=== PATIENT | male | born 1965 | race Caucasian/White ===

== ENCOUNTER 2018-01-06 19:00 | Inpatient (IN) | payer OTHER ==
[~2018-01-06] VITALS: Ht 180.3 cm; Wt 112.0 kg
[2018-01-06 20:26] LABS: Hemoglobin 10.1 g/dL (13.5-17.5); Red Cell Distribution Width 15.7 % (11.8-14.3)
[2018-01-06 20:28] LABS: Hematocrit 27.9 % (41.0-53.0); Mean Corpuscular Hemoglobin 29.6 pg (28.0-32.0); Mean Corpuscular Hgb Conc. 36.2 g/dL (32.0-36.0); Mean Corpuscular Volume 81.9 fL (80.0-100.0); Red Blood Cells 3.41 10^6/uL (4.5-5.90)
[2018-01-06 20:40] LABS: INR 1.13 (0.9-1.15); Partial Thromboplastin Time 24.9 sec (23.78-33.04)
[2018-01-06 20:51] LABS: Alanine Aminotransferase 30 U/L (16-61); Albumin 4.2 g/dL (3.4-5.0); Alkaline Phosphatase 47 U/L (45-117); Anion Gap 8 (5-15); Aspartate Aminotransferase 35 U/L (15-37); Bilirubin, Total 0.5 mg/dL (0.2-1.0); Blood Urea Nitrogen 23 mg/dL (7-18); Calcium 8.8 mg/dL (8.5-10.1); Carbon Dioxide 24 mmol/L (21-32); Chloride 104 mmol/L (98-107); GFR African American 85 mL/min; GFR Non-African American 70 mL/min; Glucose 101 mg/dL (74-106); Magnesium 2.5 mg/dL (1.6-2.6); Potassium 4.4 mmol/L (3.5-5.1); Sodium 136 mmol/L (136-145); Total Protein 8.1 g/dL (6.4-8.2)
[2018-01-06 21:11] LABS: White Blood Cell 0.9 10^3/uL (4.4-10.8)
[2018-01-06 21:12] LABS: Band Neutrophils % (manual) 0; Basophils % (manual) 0 (0.0-2.0); Blast Cells 0; Eosinophils % (manual) 0 (0-7); Lymphocytes % (manual) 50 (10.0-50.0); Metamyelocytes % 0; Monocytes % (manual) 8 (0-12); Myelocytes % 0; Platelet Count (auto) 13 10^3/uL (140-450); Promyelocytes % 0; Reactive Lymphocytes 0
[2018-01-06] MEDS ORDERED: fentaNYL CITRATE 100 MCG/2 ML VL IV ONE (21:15)
[2018-01-06] MEDS ORDERED: LABETALOL HCL 5 MG/ML ML 20ML VIAL IV ONE (22:00)
[2018-01-07] VITALS (11 sets, daily range): BP systolic 121–140; BP diastolic 63–78
[2018-01-07] MEDS ORDERED: cloNIDine HCL 0.1 MG TAB PO PRN (04:30)
[2018-01-07] MEDS ORDERED: ACETAMINOPHEN 500 MG TAB PO PRN (04:30)
[2018-01-07] MEDS ORDERED: ONDANSETRON HCL 4 MG/2 ML VIAL IV PRN (04:30)
[2018-01-07] MEDS ORDERED: TEMAZEPAM 15 MG CAP PO PRN (04:30)
[2018-01-07] MEDS: methylPREDNISolone SOD SUCC 125 MG/2 ML VL IV SCH ×3 (08:56→23:30)
[2018-01-07] MEDS ORDERED: IOHEXOL 300 MG/ML 100ML BOTTLE IJ ONE (09:06)
[2018-01-07] MEDS ORDERED: GASTROGRAFIN 30 ML SOL ONE (09:12)
[2018-01-07] MEDS ORDERED: PANTOPRAZOLE 40 MG TAB PO SCH (10:00)
[2018-01-07 13:15] LABS: Hepatitis B Surface Antibody Negative
[2018-01-07 13:32] LABS: Hepatitis B Surface Antigen Negative (Negative)
[2018-01-07 14:04] LABS: Hepatitis C Antibody Positive (Negative)
[2018-01-07] MEDS: FAMOTIDINE 20 MG TAB PO SCH (23:28)
[2018-01-08 05:27] VITALS: BP 111/58
[2018-01-08 06:29] LABS: Basophils # (auto) 0 uL; Eosinophils # (auto) 0 uL; Hematocrit 26.4 % (41.0-53.0); Mean Corpuscular Hgb Conc. 36.6 g/dL (32.0-36.0); Monocytes # (auto) 0.2 uL; Neutrophils # (auto) 0.6 uL
[2018-01-08 06:34] LABS: Basophils % (auto) 4.6 % (0.0-2.0); Hemoglobin 9.6 g/dL (13.5-17.5); Lymphocytes # (auto) 0.2 uL; Lymphocytes % (auto) 19.9 % (10.0-50.0); Mean Corpuscular Hemoglobin 29.8 pg (28.0-32.0); Mean Corpuscular Volume 81.5 fL (80.0-100.0); Monocytes % (auto) 15.5 % (0.0-12.0); Red Blood Cells 3.23 10^6/uL (4.5-5.90); Red Cell Distribution Width 15.2 % (11.8-14.3)
[2018-01-08 06:40] LABS: Nucleated Red Blood Cells % 3.1 %
[2018-01-08] MEDS: methylPREDNISolone SOD SUCC 125 MG/2 ML VL IV SCH ×3 (06:42→18:15)
[2018-01-08 06:44] LABS: % Iron Saturation 69.6 % (20-55)
[2018-01-08 06:46] LABS: Platelet Count (auto) 15 10^3/uL (140-450)
[2018-01-08 06:55] LABS: BUN/Creatinine Ratio 24.3; Calcium 8.7 mg/dL (8.5-10.1); Magnesium 2.7 mg/dL (1.6-2.6); Potassium 4.1 mmol/L (3.5-5.1)
[2018-01-08 08:00] VITALS: BP 131/71
[2018-01-08 08:09] LABS: Folate (Folic Acid) 10.51 ng/mL (5.38-24)
[2018-01-08 09:00] VITALS: BP 131/71
[2018-01-08] MEDS: LORazepam 0.5 MG TAB PO PRN (10:07)
[2018-01-08] MEDS: FAMOTIDINE 20 MG TAB PO SCH ×2 (10:07→21:56)
[2018-01-08] MEDS ORDERED: DEXTROSE (50%) 50ML SYRG IV PRN (10:15)
[2018-01-08] MEDS: ACCU-CHEK COMFORT CURVE STRIP VI SCH ×3 (11:30→21:59)
[2018-01-08] MEDS: InsuLIN REG 1unit/0.01ml Soln (100units/ml) SC SCH ×3 (11:30→22:06)
[2018-01-08] MEDS: IV IMMUNE GLOBULIN(IVIG) 10% 20G/200ML IV SCH (12:00)
[2018-01-08 13:00] VITALS: BP 122/71
[2018-01-08 17:00] VITALS: BP 123/76
[2018-01-08 21:21] VITALS: BP 135/80
[2018-01-08] MEDS ORDERED: FAM20T PO (23:27)
[2018-01-09] VITALS (11 sets, daily range): BP systolic 115–168; BP diastolic 59–80
[2018-01-09] MEDS: methylPREDNISolone SOD SUCC 125 MG/2 ML VL IV SCH ×5 (00:16→23:17)
[2018-01-09 05:53] LABS: Hemoglobin 9.1 g/dL (13.5-17.5); White Blood Cell 2.1 10^3/uL (4.4-10.8)
[2018-01-09 05:55] LABS: Hematocrit 24.9 % (41.0-53.0); Mean Corpuscular Hemoglobin 30.2 pg (28.0-32.0); Mean Corpuscular Hgb Conc. 36.4 g/dL (32.0-36.0); Mean Corpuscular Volume 82.9 fL (80.0-100.0); Red Cell Distribution Width 15.8 % (11.8-14.3)
[2018-01-09 06:05] LABS: Platelet Count (auto) 11 10^3/uL (140-450)
[2018-01-09 06:06] LABS: Band Neutrophils % (manual) 0; Basophils % (manual) 0 (0.0-2.0); Blast Cells 0; Eosinophils % (manual) 0 (0-7); Metamyelocytes % 0; Myelocytes % 0; Promyelocytes % 0; Reactive Lymphocytes 0
[2018-01-09] MEDS: InsuLIN REG 1unit/0.01ml Soln (100units/ml) SC SCH ×4 (06:35→22:00)
[2018-01-09] MEDS: ACCU-CHEK COMFORT CURVE STRIP VI SCH ×4 (06:35→22:00)
[2018-01-09 07:24] LABS: Urine Bacteria NONE SEEN /hpf (None Seen); Urine Blood 2+ /uL (Negative); Urine Specific Gravity 1.018 (1.001-1.035); Urine WBC 1 /hpf (0 - 3)
[2018-01-09 08:06] LABS: Immunoglobulin G, Serum 922 mg/dL (700-1600)
[2018-01-09] MEDS ORDERED: LIDOCAINE 2% (LOCAL ANESTH.) PF 5ml SDV ONE ×2 (08:13→08:15)
[2018-01-09 08:31] LABS: Lymphocytes % (manual) 37 (10.0-50.0); Monocytes % (manual) 32 (0-12)
[2018-01-09] MEDS: FAMOTIDINE 20 MG TAB PO SCH ×2 (10:00→22:28)
[2018-01-09] MEDS: IV IMMUNE GLOBULIN(IVIG) 10% 20G/200ML IV SCH (11:52)
[2018-01-09] MEDS ORDERED: FUROSEMIDE 20 MG/2 ML VIAL IV ONE (14:30)
[2018-01-09] MEDS ORDERED: ALBUTEROL SULF 2.5 MG/0.5ML(0.5%) NEB SOLN NEB PRN (18:15)
[2018-01-09] MEDS: ALBUTEROL SULF 2.5 MG/0.5ML(0.5%) NEB SOLN NEB SCH (18:34)
[2018-01-09] MEDS ORDERED: ACYCLOVIR 5MG/KG Q8HR PER RX 0 ML IV SCH (18:45)
[2018-01-09] MEDS ORDERED: VANCOMYCIN PER PHARMACY 0 MG IV SCH (18:45)
[2018-01-09] MEDS ORDERED: VANCOMYCIN 1GM/250ML 250 ML IV ONE (18:45)
[2018-01-09] MEDS ORDERED: PIPERACILLIN-TAZOB 3.375GM 100 ML IV ONE (18:45)
[2018-01-09] MEDS ORDERED: BACTRIM 5MG/KG Q8HR PER RX 0 ML IV SCH (18:45)
[2018-01-09] MEDS ORDERED: ACETAMINOPHEN 325 MG TAB PO ONE (19:00)
[2018-01-09] MEDS ORDERED: diphenhdrAMINE HCL 50 MG/1 ML VL IV ONE (19:00)
[2018-01-09 19:40] LABS: Albumin 3.4 g/dL (3.4-5.0); BUN/Creatinine Ratio 25.4; Bilirubin, Total 0.4 mg/dL (0.2-1.0); Calcium 8.1 mg/dL (8.5-10.1); Total Protein 9.2 g/dL (6.4-8.2)
[2018-01-09] MEDS: FUROSEMIDE 40 MG/4 ML VIAL IV SCH (20:20)
[2018-01-09] MEDS: POTASSIUM CHL 20 Meq TABLET PO SCH (20:20)
[2018-01-09] MEDS ORDERED: IOHEXOL 350 MG/ML 100ML IJ ONE (21:01)
[2018-01-09] MEDS: FLUCONAZOLE 200MG/100ML 100 ML IV SCH ×2 (21:59→23:15)
[2018-01-10] VITALS (39 sets, daily range): BP systolic 91–147; BP diastolic 41–89
[2018-01-10] MEDS: ACYCLOVIR SOD 50MG/ML 500 MG in D5W 5% 100 ML IV SCH ×3 (00:15→13:00)
[2018-01-10] MEDS: SULFAMETH TRIMETH IV SCH ×3 (00:30→13:27)
[2018-01-10] MEDS: D5W 5% IV SCH ×3 (00:30→13:27)
[2018-01-10] MEDS: PIPERACILLIN-TAZOB 3.375GM 100 ML IV SCH ×4 (01:06→16:57)
[2018-01-10] MEDS: VANCOMYCIN 1GM/250ML 250 ML IV SCH ×3 (03:55→20:18)
[2018-01-10 04:02] LABS: Hemoglobin 7.3 g/dL (13.5-17.5)
[2018-01-10 04:06] LABS: Hematocrit 20.5 % (41.0-53.0); Mean Corpuscular Hemoglobin 29.4 pg (28.0-32.0); Mean Corpuscular Hgb Conc. 35.6 g/dL (32.0-36.0); Mean Corpuscular Volume 82.6 fL (80.0-100.0); Red Blood Cells 2.49 10^6/uL (4.5-5.90); Red Cell Distribution Width 15.5 % (11.8-14.3)
[2018-01-10 04:16] LABS: Platelet Count (auto) 8 10^3/uL (140-450); White Blood Cell 1.3 10^3/uL (4.4-10.8)
[2018-01-10 04:17] LABS: BUN/Creatinine Ratio 26.4; Calcium 7.5 mg/dL (8.5-10.1); Potassium 4.2 mmol/L (3.5-5.1)
[2018-01-10] MEDS: ALBUTEROL SULF 2.5 MG/0.5ML(0.5%) NEB SOLN NEB SCH ×4 (05:59→18:00)
[2018-01-10] MEDS: ACCU-CHEK COMFORT CURVE STRIP VI SCH ×4 (06:30→22:00)
[2018-01-10] MEDS: InsuLIN REG 1unit/0.01ml Soln (100units/ml) SC SCH ×4 (06:30→22:00)
[2018-01-10] MEDS: methylPREDNISolone SOD SUCC 125 MG/2 ML VL IV SCH ×2 (06:30→11:59)
[2018-01-10 06:34] LABS: Basophils % (manual) 0 (0.0-2.0); Blast Cells 0; Eosinophils % (manual) 0 (0-7); Metamyelocytes % 0; Myelocytes % 0; Promyelocytes % 0; Reactive Lymphocytes 0
[2018-01-10 06:52] LABS: Band Neutrophils % (manual) 2; Lymphocytes % (manual) 28 (10.0-50.0)
[2018-01-10 06:55] LABS: Monocytes % (manual) 38 (0-12)
[2018-01-10] MEDS: FLUCONAZOLE 200MG/100ML 100 ML IV SCH ×2 (09:08→10:50)
[2018-01-10] MEDS: FAMOTIDINE 20 MG TAB PO SCH ×2 (09:09→21:12)
[2018-01-10] MEDS: FUROSEMIDE 40 MG/4 ML VIAL IV SCH (09:09)
[2018-01-10] MEDS: POTASSIUM CHL 20 Meq TABLET PO SCH (09:09)
[2018-01-10 09:58] LABS: Hepatitis A Total Antibody Negative
[2018-01-10 11:03] LABS: Hepatitis A Ab IgM Negative
[2018-01-10 12:17] LABS: Hematocrit 21.1 % (41.0-53.0); Hemoglobin 7.4 g/dL (13.5-17.5); Mean Corpuscular Hemoglobin 29.1 pg (28.0-32.0); Mean Corpuscular Hgb Conc. 34.9 g/dL (32.0-36.0); Mean Corpuscular Volume 83.4 fL (80.0-100.0); Platelet Count (auto) 42 10^3/uL (140-450); Red Blood Cells 2.53 10^6/uL (4.5-5.90); Red Cell Distribution Width 15.8 % (11.8-14.3); White Blood Cell 2.2 10^3/uL (4.4-10.8)
[2018-01-10 12:26] LABS: Band Neutrophils % (manual) 0; Basophils % (manual) 0 (0.0-2.0); Blast Cells 0; Eosinophils % (manual) 0 (0-7); Promyelocytes % 0; Reactive Lymphocytes 0
[2018-01-10 13:04] LABS: Lymphocytes % (manual) 25 (10.0-50.0); Metamyelocytes % 1; Monocytes % (manual) 36 (0-12); Myelocytes % 1
[2018-01-10] MEDS: DEXAMETHASONE INJECTION 10 MG in D5W 5% 50 ML IV SCH (21:13)
[2018-01-10] MEDS ORDERED: DEXAMETHASONE SOD PHOS 10MG/1ML VIAL INJ IV SCH (22:00)
[2018-01-11] VITALS (67 sets, daily range): BP systolic 100–153; BP diastolic 41–77
[2018-01-11 03:51] LABS: Hematocrit 18.7 % (41.0-53.0); Mean Corpuscular Hgb Conc. 36.1 g/dL (32.0-36.0); Mean Corpuscular Volume 83.1 fL (80.0-100.0); Red Blood Cells 2.25 10^6/uL (4.5-5.90); Red Cell Distribution Width 16.1 % (11.8-14.3)
[2018-01-11 04:01] LABS: INR 1.25 (0.9-1.15); Prothrombin Time 13.2 sec (9.27-12.13)
[2018-01-11 04:08] LABS: Calcium 8.1 mg/dL (8.5-10.1); Potassium 4.3 mmol/L (3.5-5.1)
[2018-01-11 04:11] LABS: Albumin 3.2 g/dL (3.4-5.0); BUN/Creatinine Ratio 26.7
[2018-01-11] MEDS: VANCOMYCIN 1GM/250ML 250 ML IV SCH (04:12)
[2018-01-11 04:14] LABS: Bilirubin, Total 0.6 mg/dL (0.2-1.0); Total Protein 8.3 g/dL (6.4-8.2)
[2018-01-11 04:23] LABS: Hemoglobin 6.7 g/dL (13.5-17.5)
[2018-01-11 04:24] LABS: Platelet Count (auto) 14 10^3/uL (140-450)
[2018-01-11 04:37] LABS: Band Neutrophils % (manual) 0; Basophils % (manual) 0 (0.0-2.0); Blast Cells 0; Eosinophils % (manual) 0 (0-7); Metamyelocytes % 0; Myelocytes % 0; Promyelocytes % 0; Reactive Lymphocytes 0
[2018-01-11 04:48] LABS: Lymphocytes % (manual) 16 (10.0-50.0)
[2018-01-11 05:11] LABS: Monocytes % (manual) 64 (0-12)
[2018-01-11 05:26] LABS: Fibrinogen 210.3 mg/dL (177-375)
[2018-01-11] MEDS: PIPERACILLIN-TAZOB 3.375GM 100 ML IV SCH ×4 (06:15→21:39)
[2018-01-11] MEDS: ALBUTEROL SULF 2.5 MG/0.5ML(0.5%) NEB SOLN NEB SCH ×4 (06:18→18:32)
[2018-01-11] MEDS: InsuLIN REG 1unit/0.01ml Soln (100units/ml) SC SCH ×4 (07:00→22:00)
[2018-01-11] MEDS: ACCU-CHEK COMFORT CURVE STRIP VI SCH ×4 (07:00→22:00)
[2018-01-11 08:34] LABS: White Blood Cell 2.9 10^3/uL (4.4-10.8)
[2018-01-11] MEDS ORDERED: IPRATROPIUM BROM 0.5 MG/2.5ML INH SOL NEB PRN (09:30)
[2018-01-11] MEDS: FUROSEMIDE 40 MG/4 ML VIAL IV SCH (10:57)
[2018-01-11] MEDS: FAMOTIDINE 20 MG TAB PO SCH ×2 (10:58→22:00)
[2018-01-11] MEDS: POTASSIUM CHL 20 Meq TABLET PO SCH (10:58)
[2018-01-11] MEDS: FLUCONAZOLE 200MG/100ML 100 ML IV SCH ×2 (10:58→12:57)
[2018-01-11] MEDS: IPRATROPIUM BROM 0.5 MG/2.5ML INH SOL NEB SCH ×2 (11:50→18:32)
[2018-01-11] MEDS: LORazepam 0.5 MG TAB PO PRN (11:51)
[2018-01-11] MEDS ORDERED: VANCOMYCIN 1,250 MG in D5W 5% 250 ML IV SCH (12:00)
[2018-01-11] MEDS: DEXAMETHASONE INJECTION 10 MG in D5W 5% 50 ML IV SCH ×2 (12:20→23:06)
[2018-01-11] MEDS: TRETINOIN (CHEMOTHERAPY) 10 MG CAP PO SCH ×2 (12:32→18:00)
[2018-01-11] MEDS: VANCOMYCIN 1,250 MG in D5W 5% 250 ML IV SCH ×2 (14:22→21:40)
[2018-01-11] MEDS ORDERED: LORazepam 0.5 MG TAB PO PRN (18:15)
[2018-01-11] MEDS ORDERED: LORazepam 2MG/ML-1ML VIAL IV PRN (22:15)
[2018-01-11] MEDS ORDERED: DEXAMETHASONE SOD PHOS 10MG/1ML VIAL INJ ONE (22:46)
[2018-01-11 22:58] LABS: Hematocrit 19.9 % (41.0-53.0); Hemoglobin 7.1 g/dL (13.5-17.5)
[2018-01-12] VITALS: BP 117/45
[2018-01-12] MEDS: ALBUTEROL SULF 2.5 MG/0.5ML(0.5%) NEB SOLN NEB SCH
[2018-01-12] MEDS: IPRATROPIUM BROM 0.5 MG/2.5ML INH SOL NEB SCH
[2018-01-12 00:15] VITALS: BP 151/54
[2018-01-12] MEDS ORDERED: ROCURONIUM 10MG/ML 10ML VIAL IV ONE (00:23)
[2018-01-12] MEDS ORDERED: ETOMIDATE (2MG/ML) 20ML VIAL IV ONE (00:24)
[2018-01-12] MEDS ORDERED: SUCCINYLCHOLINE CHLORIDE 20 MG/ML 10ML VIAL IV ONE (00:24)
[2018-01-12 00:30] VITALS: BP 151/54
[2018-01-12] MEDS ORDERED: PROPOFOL 100 ML IV ONE (00:34)
[2018-01-12] MEDS ORDERED: methylPREDNISolone SOD SUCC 125 MG/2 ML VL ONE (00:44)
[2018-01-12 00:45] VITALS: BP 139/90
[2018-01-12] MEDS ORDERED: NOREPINEPHRINE 8 MG/250ML KIT 250 ML IV ONE (01:04)
[2018-01-12 01:10] VITALS: BP 104/45
[2018-01-12] MEDS ORDERED: ATROPINE SULF 1 MG/10ml SYR ONE (01:10)
[2018-01-12] MEDS ORDERED: MIDAZOLAM DRIP 50 mg/50mL 50 ML IV ONE (01:27)
[2018-01-12] MEDS ORDERED: SODIUM BICARBONATE 8.4% INJ 50ML SYRINGE ONE ×2 (01:34→01:35)
[2018-01-12] MEDS ORDERED: SODIUM BICARBONATE 8.4 % INJ 50ML VIAL IV ONE ×2 (01:43→02:08)
[2018-01-12] MEDS ORDERED: EPINEPHrine HCL 250 ML IV ONE (01:52)
[2018-01-12] MEDS ORDERED: VASOPRESSIN 20 UNIT/ML ONE (02:05)
[2018-01-12 02:17] LABS: Hematocrit 20.1 % (41.0-53.0); Mean Corpuscular Hemoglobin 30.2 pg (28.0-32.0); Mean Corpuscular Hgb Conc. 32.5 g/dL (32.0-36.0); Mean Corpuscular Volume 92.9 fL (80.0-100.0); Platelet Count (auto) 21 10^3/uL (140-450); Red Blood Cells 2.16 10^6/uL (4.5-5.90); Red Cell Distribution Width 16.8 % (11.8-14.3); White Blood Cell 8.4 10^3/uL (4.4-10.8)
[2018-01-12] MEDS ORDERED: ATRACURIUM BESYLATE 1,000 MG in D5W 5% 150 ML IV SCH (02:17)
[2018-01-12 02:23] LABS: INR 1.41 (0.9-1.15); Prothrombin Time 14.8 sec (9.27-12.13)
[2018-01-12 02:26] LABS: Hemoglobin 6.5 g/dL (13.5-17.5)
[2018-01-12 02:27] LABS: Band Neutrophils % (manual) 0; Basophils % (manual) 0 (0.0-2.0); Eosinophils % (manual) 0 (0-7); Metamyelocytes % 0; Promyelocytes % 0; Reactive Lymphocytes 0
[2018-01-12 02:29] LABS: Albumin 2.8 g/dL (3.4-5.0); Magnesium 3.7 mg/dL (1.6-2.6); Potassium 5.3 mmol/L (3.5-5.1)
[2018-01-12] MEDS ORDERED: SODIUM BICARBONATE 50ML VIAL 50 ML in SOD CHL 0.45% 1,000 ML IV ONE (02:30)
[2018-01-12] MEDS ORDERED: VASOPRESSIN 50 UNITS in D5W 5% 247.5 ML IV SCH (02:30)
[2018-01-12 02:32] LABS: BUN/Creatinine Ratio 24.6
[2018-01-12 02:33] LABS: Total Protein 7.1 g/dL (6.4-8.2)
[2018-01-12] MEDS ORDERED: EPINEPHrine HCL 1 MG/10 ML SYRG ONE (02:37)
[2018-01-12 02:53] VITALS: BP 94/68
[2018-01-12 03:07] LABS: Fibrinogen 207.6 mg/dL (177-375)
[2018-01-12 03:28] LABS: Lactic Acid w/Reflex 15.3 mmol/L (0.4-2.0)
[2018-01-12] MEDS ORDERED: EPINEPHrine HCL 1 MG/10 ML SYRG IV ONE ×2 (07:00)
[2018-01-12] MEDS ORDERED: CALCIUM CHLOR(10%) 100MG/ML 10ML SYRINGE IV ONE ×2 (07:00)
[2018-01-12] MEDS ORDERED: SODIUM BICARBONATE 8.4% INJ 50ML SYRINGE IV ONE ×2 (07:00)
[2018-01-12] MEDS ORDERED: ATROPINE SULF 1 MG/10ml SYR IV ONE ×2 (07:00)
[2018-01-12] MEDS ORDERED: IDARUBICIN HCL IV ONE (12:00)
[2018-01-12 12:57] LABS: Myelocytes % 6
[2018-01-12 12:58] LABS: Lymphocytes % (manual) 52 (10.0-50.0)
[2018-01-12 13:04] LABS: Blast Cells 2
[2018-01-12 13:07] LABS: Monocytes % (manual) 28 (0-12)
[2018-01-14] MEDS ORDERED: IDARUBICIN HCL IV ONE (12:00)
[2018-01-16] MEDS ORDERED: IDARUBICIN HCL IV ONE (12:00)
[2018-01-18] MEDS ORDERED: IDARUBICIN HCL IV ONE (12:00)
== END 2018-01-12 07:01 | disposition expired | DRG 834 ==
LOC: ER 19:00 → OVERFLOW 19:01 → WEST WING 01-07 08:16 → ICU WEST 01-09 21:43
PROVIDERS: ADMIT Nurse Practitioner Family; ATTEND Internal Medicine
PROC: 30233R1 Transfusion of Nonautologous Platelets into Peripheral Vein, Percutaneous Approach (ICD-10-PCS; 2018-01-07)
PROC: 07DR3ZX Extraction of Iliac Bone Marrow, Percutaneous Approach, Diagnostic (ICD-10-PCS; principal; 2018-01-09)
PROC: 5A09357 Assistance with Respiratory Ventilation, Less than 24 Consecutive Hours, Continuous Positive Airway Pressure (ICD-10-PCS; 2018-01-10)
PROC: 30233N1 Transfusion of Nonautologous Red Blood Cells into Peripheral Vein, Percutaneous Approach (ICD-10-PCS; 2018-01-11)
PROC: 5A09357 Assistance with Respiratory Ventilation, Less than 24 Consecutive Hours, Continuous Positive Airway Pressure (ICD-10-PCS; 2018-01-11)
PROC: 5A1935Z Respiratory Ventilation, Less than 24 Consecutive Hours (ICD-10-PCS; 2018-01-12)
PROC: 0BH17EZ Insertion of Endotracheal Airway into Trachea, Via Natural or Artificial Opening (ICD-10-PCS; 2018-01-12)
DX: C92.40 Acute promyelocytic leukemia, not having achieved remission (principal); J18.1 Lobar pneumonia, unspecified organism; J96.01 Acute respiratory failure with hypoxia; D61.818 Other pancytopenia; D68.9 Coagulation defect, unspecified; R04.0 Epistaxis; I16.0 Hypertensive urgency; B19.20 Unspecified viral hepatitis C without hepatic coma; G43.909 Migraine, unspecified, not intractable, without status migrainosus; E66.01 Morbid (severe) obesity due to excess calories; E78.5 Hyperlipidemia, unspecified; I27.20 Pulmonary hypertension, unspecified; K76.0 Fatty (change of) liver, not elsewhere classified; K57.30 Diverticulosis of large intestine without perforation or abscess without bleeding; I10 Essential (primary) hypertension; Z79.82 Long term (current) use of aspirin; Z68.34 Body mass index [BMI] 34.0-34.9, adult
CPT/HCPCS: 36415; 36430; 36600; 38221; 70450; 71045; 71275; 74178; 80048; 80053; 80061; 80202; 80320; 81001; 82607; 82728; 82746; 82784; 82805; 82947; 82962; 83010; 83540; 83550; 83605; 83615; 83735; 83880; 84443; 84484; 84550; 85007; 85014; 85018; 85025; 85027; 85045; 85097; 85384; 85610; 85730; 86038; 86677; 86703; 86706; 86708; 86709; 86803; 86850; 86880; 86900; 86901; 86920; 87040; 87081; 87340; 88185; 88291; 92950; 93005; 93306; 93970; 94002; 94640; 94660; 94761; 96374; 96375; J0171; J0330; J1100; J1450; J1561; J1815; J2001; J2250; J2543; J2704; J3490; J7060; J9211